=== PATIENT | female | born 1970 | race Caucasian/White ===

== ENCOUNTER 2023-02-23 15:38 | Emergency (ER) | payer MEDICAID, SELFPAY ==
[2023-02-23 15:39] VITALS: BP 118/69; PULSE 111; RESP 20; TEMP 36.6; O2SAT 98
--- NOTE | 2023-02-23 15:54 | ED.VIS.BACK ---
HPI History of Present Illness Chief Complaint: Back Informant: patient Onset/Context/Timing Onset: Weeks (1) Context: Gradual Onset Timing: Continuous Quality: Sharp Location: Lumbar, Buttock and Right Leg Current Severity: Severe Worsened by: improves with - (Everything) Relieved by: Nothing Associated Symptoms Associated Symptoms: Tingling and Radiation to Right Leg; Negative for Numbness, Radiation to Left Leg, Fever, Abdominal Pain, Dysuria, Unable to Ambulate, Unable to Transfer, Urinary Retention, Urinary Incontinence, Constipation or Fecal Incontinence Narrative Narrative: Presents with back pain that has been getting worse over the past week. Patient states it is gradually getting worse. Patient states she has a history of sciatica on her right side. Patient states this feels similar to prior exacerbations of her sciatica. Patient describes her pain as sharp. Patient states the pain is over the right lower lumbar area and radiates down her right leg. Patient states everything makes it worse and nothing makes it better. Patient admits to some tingling in the toes of her right foot. Patient denies any weakness. Patient denies any bowel or bladder changes. Patient denies any saddle anesthesia. [facility] Medical History (Updated 02/23/23 @ 16:[address] Pedro Tao, DO) Sciatica Home Medications cyclobenzaprine 10 mg tablet 10 mg PO QHS PRN PRN Muscle Spasm #10 TABLETS 02/23/23 [Rx Last Taken Unknown] hydrocodone-acetaminophen 5-325mg 5mg-325mg 1 tab PO Q6H PRN PRN Pain 3 days #10 TABLETS 02/23/23 [Rx Last Taken Unknown] prednisone 20 mg tablet 60 mg (3 x 20 mg) PO DAILY #15 TABLETS 02/23/23 [Rx Last Taken Unknown] Allergy/AdvReac Type Severity Reaction Status Date / Time No Known Allergies Allergy Verified 02/23/23 15:39 Surgical History no surgical history no surgical history ROS ROS ED Constitutional Constitutional ED: Denies chills or fever(s) Eyes Eyes: Denies blurry vision or change in vision ENT ENT ED: Denies rhinorrhea or sore throat Cardiovascular Cardiovascular: Denies chest pain or palpitations Respiratory/Chest Respiratory/Chest: Denies cough or dyspnea Gastrointestinal Gastrointestinal: Denies nausea or vomiting Genitourinary Genitourinary ED: Denies dysuria or hematuria Musculoskeletal Musculoskeletal: Reports back pain; Denies neck pain Integumentary Denies abscess or rash Neurologic Neurologic: Denies headache(s) or weakness Allergic/Immunologic Allergic/Immunologic ED: Denies mouth swelling or urticaria EXAM Physical Exam Const Vital Signs: 02/23/23 15:39 Temperature 98 F Temperature Source Temporal Pulse Rate 111 H Respiratory Rate 20 H Blood Pressure 118/69 Blood Pressure Mean 85 Pulse Ox 98 Oxygen Delivery Method Room Air Positive well nourished, well developed and obese General Appearance ED: well developed and NAD Nutritional Appearance: obese HEENT Reports moist mucous membranes Neck supple and no JVD Back/Spine Back/Spine Narrative: There is tenderness to palpation over the right lower lumbar paraspinal muscles, sciatic notch, and sacroiliac area. There is no bony crepitance or step-off. There is no ecchymosis noted. There is no deformity noted. Range of motion was slightly limited in all motions of the lumbar spine secondary to pain. Strength is 5/5 bilaterally in the lower extremities. There are no sensory deficits noted. Deep tendon reflexes are 1+/4 bilaterally in the lower extremities. Straight leg raises were negative bilaterally. Lumbar Spine / Lower Back: ROM limited and straight leg raise negative bilaterally Neuro oriented x3 and no sensory deficits noted Sensorium / Orientation: alert Motor Exam: strength 5/5 throughout Deep Tendon Reflexes: Rt Patellar (L4): 1+, Lt Patellar (L4): 1+, Rt Ankle (S1): 1+ and Lt Ankle (S1): 1+ Deep Tendon Reflexes Back: Rt Patellar (L4): 1+, Lt Patellar (L4): 1+, Rt Ankle (S1): 1+ and Lt Ankle (S1): 1+ Psych mental status grossly normal Skin no rashes or lesions noted MDM MDM MDM Narrative Medical decision making narrative: Was advised that this is most likely a flareup of her sciatica. Patient was given a dose of [place] and prednisone here. Patient was given prescriptions for [place], prednisone, and Flexeril. Patient was instructed to continue her Neurontin as prescribed. Patient was advised that that is not a as needed medication and that it needs to be taken regularly to be effective. Patient also requested a referral for orthopedics. This was provided to the patient. Patient was instructed to follow-up with her primary care physician in 5 to 7 days. Patient was instructed return if worse in any way. Patient understood and was agreeable with the plan. All questions were answered. Discharge Plan Triage Chief Complaint: Back ED Provider: Pedro Tao Dx/Rx/DC Orders Clinical Impression: Sciatica Instructions: ED Sciatica Prescriptions: New cyclobenzaprine [cyclobenzaprine] 10 mg tablet 10 mg PO QHS PRN PRN (Reason: Muscle Spasm) Qty: 10 0RF hydrocodone-acetaminophen [hydrocodone-acetaminophen] 5-325 mg tablet 1 tab PO Q6H PRN PRN (Reason: Pain) 3 Days Qty: 10 0RF prednisone 20 mg tablet 60 mg PO DAILY Qty: 15 0RF Primary Care Provider: Care Physician,No Primary Referrals: Cassie Raines MD [Med Staff - Psychologist Clinical] - 5-7 Days Jeff Duran DO [Med Staff - Active Staff] - 5-7 Days Care Physician,No Primary [Primary Care Provider] - Disposition Disposition: Home, Self Care
[2023-02-23] MEDS: HYDROcodone Bitartrate/Apap 5/325 Tablet PO (16:13)
[2023-02-23] MEDS: predniSONE 20 MG Tablet 60 MG PO (16:14)
== END 2023-02-23 16:18 | disposition home or self-care (01) ==
PROVIDERS: Emergency Provider Emergency Medicine; Visit Provider Emergency Medicine
DX: M54.30 Sciatica, unspecified side (principal)
CPT/HCPCS: 99283

== ENCOUNTER 2023-03-08 20:55 | Emergency (ER) | payer MEDICAID, SELFPAY ==
[2023-03-08 20:58] VITALS: BP 107/80; PULSE 94; RESP 20; TEMP 36.3; O2SAT 98
[2023-03-08 21:04] VITALS: BMI 36.1
--- NOTE | 2023-03-08 21:06 | ED.VIS.DENTA ---
HPI History of Present Illness Chief Complaint: Dental Informant: patient Narrative Narrative: Chronic dental issues worse in the past couple days trouble sleeping at night no fevers, chills, bleeding, discharge, systemic symptoms. States she has been trying to get into a dentist to get this taken care of but having issues. Denies any facial swelling. [facility] Medical History Neuroma Sciatica Home Medications gabapentin 300 mg capsule 300 mg PO 03/03/23 [History Last Taken Unknown] amoxicillin 500 mg tablet 500 mg PO TID #30 tabs 03/08/23 [Rx Last Taken Unknown] Allergy/AdvReac Type Severity Reaction Status Date / Time No Known Allergies Allergy Verified 03/08/23 20:58 Surgical History (Updated 03/03/23 @ 09:12 by Dayana Shields) History of carpal tunnel release Status post breast lumpectomy Social History household members: family Smoking Status: Current every day smoker tobacco type: cigarettes alcohol intake: never ROS ROS ED Constitutional Constitutional ED: Denies chills or fever(s) Eyes Eyes: Denies change in vision or double vision ENT ENT ED: Reports dental pain; Denies sinus pain or throat swelling Cardiovascular Cardiovascular: Denies chest pain or palpitations Respiratory/Chest Respiratory/Chest: Denies cough or dyspnea Integumentary Denies abscess or rash Neurologic Neurologic: Denies headache(s), paresthesias or weakness EXAM Physical Exam Const Vital Signs: 03/08/23 20:58 Temperature 97.4 F L Temperature Source Temporal Pulse Rate 94 Respiratory Rate 20 H Blood Pressure 107/80 Blood Pressure Mean 89 Pulse Ox 98 Oxygen Delivery Method Room Air Positive well nourished and well developed General Appearance ED: well developed and NAD HEENT HEENT Narrative: Tender decayed tooth #11. No bleeding, no associated gingival or facial/dental/palatal abscess. No trismus. Face and Sinus: sinuses nontender Throat: posterior oropharynx normal Eyes PERRL and EOMs intact bilaterally Neck no lymphadenopathy and supple Resp normal respiratory effort Neuro oriented x3 and CN's II-XII intact bilaterally Sensorium / Orientation: alert Gait (Neuro): normal gait Psych mental status grossly normal and thought process normal Skin no rashes or lesions noted and no wounds MDM MDM MDM Narrative Medical decision making narrative: Reviewed OARRS report patient had a recent narcotic prescription from here this month for back pain. I am apprehensive about giving her another prescription for narcotics which I discussed with her, she is in agreement and really just wants antibiotics and something for pain tonight which I am okay with. Discharge Plan Triage Chief Complaint: Dental ED Provider: Kristopher Arnold Dx/Rx/DC Orders Clinical Impression: Infected dental caries Instructions: ED Dental Cavity Prescriptions: New amoxicillin 500 mg tablet 500 mg PO TID Qty: 30 0RF No Action gabapentin 300 mg capsule 300 mg PO Primary Care Provider: Care Physician,No Primary Referrals: Care Physician,No Primary [Primary Care Provider] - Dentist,Your [STAFF PHYSICIAN] - As soon as possible Disposition Disposition: Home, Self Care
[2023-03-08] MEDS: AMOXICILLIN 500 MG CAPSULE PO (21:09)
[2023-03-08] MEDS: oxyCODONE 5 MG Tablet PO (21:09)
== END 2023-03-08 21:15 | disposition home or self-care (01) ==
LOC: ED 21:13
PROVIDERS: Emergency Provider Emergency Medicine; Visit Provider Emergency Medicine
DX: K02.9 Dental caries, unspecified (principal); F17.210 Nicotine dependence, cigarettes, uncomplicated
CPT/HCPCS: 99283

== ENCOUNTER 2023-03-24 13:14 | Outpatient (RCR) | payer MEDICAID, SELFPAY ==
--- NOTE | 2023-03-24 13:57 | HP.PTEVAL_ITS ---
Patient's Visit Information Visit Information Visit Information: THAD RAMÍREZ is a 52 year old F referred to Physical Therapy by Dr. Jeff Duran, DO with a diagnosis of SCIATICA ,OTHER INTERVERTEBRAL DISC DEGENERATION ,LUMBAR. Date of Evaluation: 03/24/23 Physical Therapist: Devon Isaac, PT, Cert MDT, OCS Visit Plan Frequency: 2x /Week Duration: 4 Weeks Plan: PT [facility] WITH LUMBAR ROM ,DLS ,POSTURAL EX'S , ROM AND STRENGTHENING BLE Subjective Subjective: This 52 y/o female is referred to physical therapy with lumbar radiculopathy. Patient has had back pain many years. Most recently symptoms progressively worse . Patient seen DR Duran but needed PT and will need MRI. Patient had x-rays showed DDD. Patient also patient has bilateral knee pain and right hip with DJD and plan to see orthro. Patient has pain management 15 years ago. Patient pain located right lumbar with radicular symptoms in leg. Aggravating factors walking less ~ 2-3 mins, standing ~ 1min before sitting . Alleviating factors rest ,sitting . Patient has paresthesia/tingling feet . No abnormal night pain. Patient may need pain management. Coughing/sneezing -. Patient sleeping is affected by pain. Patient tried PT in past. No abnormal night pain. Patient affects QOL and function. Patient goals to decrease pain and possible MRI SOCIAL: VOCATION: disability Pain Bilateral Back: Pain Intensity (Out of 10): 8 Pain Intensity Range: 10 Bilateral Knee: Pain Intensity (Out of 10): 7 Pain Intensity Range: 10 Right Hip: Pain Intensity (Out of 10): 9 Pain Intensity Range: 10 Objective Objective: POSTURE: mild/mod forward posture trunk ,hip/knees flexed NEURO: c/o paresthesia/tingling reflexes L3-4,L4-5,L5-S1 1/3 PALPATION: tender SI/LS FLEXABLITY: hamstrings min tight HIP PROM: IR 10 degrees right KNEE AROM: 5-120 supine knee flexion MMT: quads/hams 4/5 , hip flexion .abduction 4-/5 ,ankle 5/5 LUMBAR ROM: flexion WFL ,extension severe/mod loss pain ,side glides loss Special Tests L/S Slump test left side: Negative L/S Slump test right side: Negative L/S Left Straight Leg Raise: Negative L/S Right Straight Leg Raise: Negative Lumbar Standing: Flexion - Mechanical Response: No effect Lumbar Standing: Flexion - Symptoms During Testing: No effect Lumbar Standing: Flexion - Symptoms After Testing: No effect Lumbar Standing: Extension - Mechanical Response: No effect Lumbar Standing: Extension - Symptoms During Testing: Increases Lumbar Standing: Extension - Symptoms After Testing: Worse Lumbar Standing: Right Side Glides - Mechanical Response: No effect Lumbar Standing: Right Side [place] - Symptoms During Testing: No effect Lumbar Standing: Right Side [place] - Symptoms After Testing: No effect Lumbar Standing: Left Side [place] - Mechanical Response: No effect Lumbar Standing: Left Side [place] - Symptoms During Testing: No effect Lumbar Standing: Left Side [place] - Symptoms After Testing: No effect Balance/Special Test Scores Oswestry Low Back Score: 31 Goals Goal 1:: Patient to be I with Aquatic therapy program and HEP Goal Time Frame: 4-6 Weeks Goal 2:: Patient be able to walking and stand > 5 mins to improve ADLS and housework tasks. Goal Time Frame: 4-6 Weeks Goal 3:: Patient to improve lumbar ROM for function of recovery to tie shoes and housework tasks Goal Time Frame: 4-6 Weeks Goal 4:: Patient to improve back oswestry score by 5 points to improve QOL Goal Time Frame: 4-6 Weeks Goal 5:: Patient to demonstrate 40-50% improvement with decrease pain and improved function. Goal Time Frame: 4-6 Weeks Rehabilitation Potential Physical Therapy Diagnosis: This patient has lumbar maculopathy with possible stenosis with pain worse with walking and standing better with sitting and is affected with motion testing and positioning thus benefit from skilled PT Rehabilitation Potential: Fair Anticipated Interventions Patient/Client Instruction: Educate patient on: Condition and Plan of Care For the Purpose of:: To decrease pain, To increase ROM, To improve muscle performance and motor function, To improve ability to perform ADL's, To increase tolerance to activity/condition/position, To improve ability of physical actions for home/community/work/leisure, To improve health of tissue, To decrease soft tissue restriction, To increase flexibility/ROM, To improve endurance, To improve balance, To reduce risk of recurrence, To prevent re-injury and To improve tolerance to ADL's Therapeutic Exercise to Include: Strength training, Endurance training, Body mechanics, Postural training, Flexibilty training, In an aquatic setting and Dynamic Lumbar Stabilization For the Purpose of:: To decrease pain, To increase ROM, To improve muscle performance and motor function, To improve ability to perform ADL's, To increase tolerance to activity/condition/position, To improve performance and independence with ADL's, To improve ability of physical actions for home/community/work/leisure, To improve gait and locomotor functions, To decrease soft tissue restriction, To increase flexibility/ROM, To prevent re- injury and To improve tolerance to ADL's Text: Thank you for the opportunity to evaluate your patient. For Medicare and Medicare HMO plans, please review the plan of care and approve it. It will need to be FAXED BACK to us at [phone] for Medicare purposes. For Medicare only, by signing this I certify the plan of care. Please let me know if there are questions or concerns regarding this plan of care. Physician Signature: Date:
== END 2023-03-24 19:00 | disposition home or self-care (01) ==
LOC: PT 13:14
PROVIDERS: Referring Provider Orthopaedic Surgery; Visit Provider Orthopaedic Surgery
DX: M54.30 Sciatica, unspecified side (principal); M51.36 Other intervertebral disc degeneration, lumbar region
CPT/HCPCS: 97162

== ENCOUNTER → 2023-05-09 | Outpatient (CLI) | payer MEDICAID, SELFPAY ==
--- NOTE | 2023-05-09 09:28 | MRI_ITS ---
EXAM: MR LUMBAR SPINE WITHOUT INTRAVENOUS CONTRAST CLINICAL INDICATION: PAIN TECHNIQUE: Multiplanar and multisequence MR images of the lumbar spine without intravenous contrast. COMPARISON: No relevant prior studies available. FINDINGS: VERTEBRAE: Partial lumbarization of L5. Vertebral body heights are preserved. Normal vertebral bodies. Multilevel facet arthropathy. No spondylolisthesis. There is preservation of the normal lumbar lordosis. SPINAL CORD: Normal. Normal position and signal intensity of the conus medullaris. SOFT TISSUES: Normal. DISCS/SPINAL CANAL/NEURAL FORAMINA: L1-L2: Normal. Normal disc height and morphology. Normal spinal canal and lateral recesses. Normal neuroforamina. L2-L3: Decreased T2 signal intensity of the disc indicative of desiccation. No significant disc space narrowing. Mild disc bulging, ligamentous hypertrophy and facet arthropathy results in mild to moderate spinal stenosis and mild right and moderate left neural foraminal stenosis. Element of short pedicles also contributes to the narrowing of the spinal canal. L3-L4: Normal. Normal disc height and morphology. Mild disc bulging, ligamentous hypertrophy and facet arthropathy as well as short pedicles results in moderate spinal stenosis and mild narrowing of the neural foramina related to facet arthropathy. L4-L5: Moderate disc space narrowing. No disc herniation. Normal spinal canal. Mild to moderate narrowing of the neural foramina related to facet arthropathy and mild lateral disc bulging. L5-S1: Mild anterior disc space narrowing no disc herniation. Normal caliber spinal canal. Mild narrowing of the right neural foramen related to facet arthropathy and mild vertebral body osteophytosis. MRI/Spine Lumbar (Routine) IMPRESSION: Moderate spinal stenosis at L2-3 and L3-4 related to short pedicles, mild disc bulging, facet arthropathy and ligamentous hypertrophy. Electronically Signed: Mo Fallon MD at 8:30 EDT ,
== END | disposition home or self-care (01) ==
LOC: MRI 09:26
PROVIDERS: Referring Provider Orthopaedic Surgery; Visit Provider Orthopaedic Surgery
DX: M51.36 Other intervertebral disc degeneration, lumbar region (principal)
CPT/HCPCS: 72148

== ENCOUNTER 2023-05-22 11:37 | Emergency (ER) | payer MEDICAID, SELFPAY ==
[2023-05-22 11:38] VITALS: BP 121/76; PULSE 108; RESP 18; TEMP 35.9; O2SAT 98
--- NOTE | 2023-05-22 14:02 | EX.ED.DYSGE1 ---
HPI History of Present Illness Chief Complaint: Back Informant: patient Narrative Narrative: 53-year-old female presenting to the emergency department chief complaint of sciatica and shoulder pain. Patient has chronic pain and was in pain management prior to moving to the [facility]. She states that she has had sciatica in the past and has had ablation. For the past 2 weeks she has had pain in the right buttock radiating down her right leg. Has progressively worsened and now she states she cannot stand for any length of time. She also notes bilateral knee pain which she states she is supposed to have bilateral knee replacements but needs to lose weight first. She also notes arthritic changes in the shoulders and states that the right shoulder is more painful recently. She denies any known or direct trauma. No bowel or bladder dysfunction, no fevers, no immunosuppression or diabetes, no muscle strength or sensory changes. She does note electric-like shocks traveling down the right leg into her foot she denies any rashes. Denies any IV drug use. Currently she states that this flare has been going on for 2 weeks but got more severe last night. I did review Dr. Brennan's and Roger's previous office visits notes. She did have an MRI at the end of April. Patient states that she has been taking ibuprofen for pain. She noted with Dr. Duran that she cannot take ibuprofen because of stomach ulcers but have been taking Aleve. I did review her OARRS report. [facility] Medical History Neuroma Sciatica Home Medications celecoxib 200 mg capsule (Celebrex) 200 mg PO DAILY #30 caps 03/11/23 [Rx Last Taken Unknown] Allergy/AdvReac Type Severity Reaction Status Date / Time No Known Allergies Allergy Verified 05/22/23 11:40 Surgical History History of carpal tunnel release Status post breast lumpectomy Social History household members: family Smoking Status: Current every day smoker tobacco type: cigarettes alcohol intake: never ROS ROS ED Constitutional Constitutional ED: Denies chills, fever(s) or weight loss Eyes Eyes: Denies change in vision or diplopia ENT ENT ED: Denies ear pain, rhinorrhea or sore throat Cardiovascular Cardiovascular: Denies chest pain, orthopnea, palpitations or racing heartbeat Respiratory/Chest Respiratory/Chest: Denies cough, dyspnea or orthopnea Gastrointestinal Gastrointestinal: Denies abdominal pain, diarrhea, nausea or vomiting Genitourinary Genitourinary ED: Denies dysuria, hematuria or urinary frequency Musculoskeletal Musculoskeletal: Reports arthralgias and back pain; Denies myalgias or neck pain Integumentary Denies abscess or rash Neurologic Neurologic: Reports paresthesias; Denies headache(s) or weakness Psychiatric Psychiatric: Denies anxiety, depression, suicidal ideation or suicidal thoughts Endocrine Endocrinology: Denies polydipsia, polyphagia or polyuria Allergic/Immunologic Allergic/Immunologic ED: Denies mouth swelling, tongue swelling or urticaria EXAM Physical Exam Narrative Exam Narrative: Patient is laying on her stomach. He is in a darkened room resting. No acute distress. She is able to get herself on her back. She is able to cross her right leg over her left leg while laying down sitting that does seem to make it feel better. Const Vital Signs: 05/22/23 11:38 05/22/23 12:18 Temperature 96.7 F L Temperature Source Temporal Pulse Rate 108 H Respiratory Rate 18 Respiratory Effort Normal Non-Labored Respiratory Pattern Normal Blood Pressure 121/76 H Blood Pressure Mean 91 Pulse Ox 98 Oxygen Delivery Method Room Air Positive well nourished, well developed and obese General Appearance ED: well developed Nutritional Appearance: obese HEENT Reports normocephalic, head/scalp atraumatic and moist mucous membranes Eyes PERRL and EOMs intact bilaterally Neck no lymphadenopathy, supple and no JVD Resp normal respiratory effort and clear to auscultation bilaterally Cardio regular rate, regular rhythm and no murmurs GI normal to inspection, nondistended, normoactive bowel sounds and non-tender Palpation: soft Back/Spine no CVA tenderness Back/Spine Narrative: Right sciatic notch tenderness. Motor and sensory exam of the lower extremities appears normal. Extremity normal to inspection Extremity Narrative: No obvious joint effusion. No overlying erythema or increased warmth to the joints. General Extremety ED: Negative for edema General Extremity: Negative for edema Neuro oriented x3 and CN's II-XII intact bilaterally Sensorium / Orientation: alert Motor Exam: strength 5/5 throughout Psych mental status grossly normal Mood & Affect: Negative for depressed or tearful Skin no rashes or lesions noted and no wounds MDM MDM MDM Narrative Medical decision making narrative: This appears to be acute exacerbation of her chronic illnesses. I can write for a short burst of steroids. I will also write for some anti-inflammatory medication. I did review her OARRS report. She has not had any recent narcotics I can write for a few [place]. Would recommend that she follow-up with her doctors especially for exacerbations of chronic illnesses. At this time I do not see any acute need for hospitalization surgical intervention. Discharge Plan Triage Chief Complaint: Back Other Complaint: General Illness ED Provider: Dhaval Martin Dx/Rx/DC Orders Clinical Impression: Sciatica, Acute pain of right shoulder Instructions: ED Sciatica Prescriptions: No Action celecoxib [Celebrex] 200 mg capsule 200 mg PO DAILY Qty: 30 0RF Primary Care Provider: Care Physician,No Primary Referrals: Care Physician,No Primary [Primary Care Provider] - Disposition Disposition: Home, Self Care
[2023-05-22] MEDS: Ketorolac 60 MG/2 ML Vial IM (14:21)
[2023-05-22] MEDS: oxyCODONE 5 MG Tablet 10 MG PO (14:21)
== END 2023-05-22 14:26 | disposition home or self-care (01) ==
PROVIDERS: Emergency Provider Emergency Medicine; Visit Provider Emergency Medicine
DX: M54.32 Sciatica, left side (principal); M25.511 Pain in right shoulder; F17.210 Nicotine dependence, cigarettes, uncomplicated
CPT/HCPCS: 96372; 99283

== ENCOUNTER 2023-09-09 19:16 | Emergency (ER) | payer MEDICAID, SELFPAY ==
[2023-09-09 19:18] VITALS: BP 125/74; PULSE 100; RESP 16; TEMP 36.3; O2SAT 98; BMI 41.9
--- NOTE | 2023-09-09 21:47 | EX.ED.DYSGE1 ---
HPI History of Present Illness Chief Complaint: Other, Pain/Inj Detail of Chief Complaint: Right-sided neck pain Informant: patient Onset/Context/Timing Onset: Weeks Context: Gradual Onset Timing: Waxes and wanes Narrative Narrative: Patient presents secondary to right-sided neck pain. She woke about a week ago with right-sided neck pain and thought she just slept wrong. She continues to have spasm. She is been taking ibuprofen regularly without improvement. Patient states she did fall on the ice yesterday onto her buttocks but did not injure her neck without fall. No fever or chills. No headache. [facility] Medical History Neuroma Sciatica Home Medications celecoxib 200 mg capsule (Celebrex) 200 mg PO DAILY #30 caps 03/11/23 [Rx Last Taken Unknown] ibuprofen 600 mg tablet 600 mg PO Q6H #20 TABLETS 05/22/23 [Rx Last Taken Unknown] omeprazole 20 mg capsule,delayed release 20 mg PO BID #10 CAPSULES 05/22/23 [Rx Last Taken Unknown] oxycodone-acetaminophen 5 mg-325 mg tablet 1 tab PO Q6H PRN PRN Pain 3 days #12 TABLETS 05/22/23 [Rx Last Taken Unknown] prednisone 20 mg tablet 60 mg (3 x 20 mg) PO DAILY #15 TABLETS 05/22/23 [Rx Last Taken Unknown] cyclobenzaprine 10 mg tablet 10 mg PO TID PRN Muscle Spasm #20 TABLETS 09/09/23 [Rx Last Taken Unknown] prednisone 20 mg tablet 40 mg (2 x 20 mg) PO DAILY #10 tabs 09/09/23 [Rx Last Taken Unknown] Allergy/AdvReac Type Severity Reaction Status Date / Time No Known Allergies Allergy Verified 09/09/23 19:20 Surgical History History of carpal tunnel release Status post breast lumpectomy Social History household members: family Smoking Status: Current every day smoker tobacco type: cigarettes alcohol intake: never ROS ROS ED Constitutional Constitutional ED: Denies chills or fever(s) ENT ENT ED: Denies rhinorrhea or sore throat Cardiovascular Cardiovascular: Denies chest pain Respiratory/Chest Respiratory/Chest: Denies cough or dyspnea Gastrointestinal Gastrointestinal: Denies abdominal pain, nausea or vomiting Musculoskeletal Musculoskeletal: Reports neck pain; Denies back pain or extremity pain Integumentary Denies Abrasions or rash Neurologic Neurologic: Denies headache(s), paresthesias or weakness Allergic/Immunologic Allergic/Immunologic ED: Denies lip swelling or urticaria EXAM Physical Exam Const Vital Signs: 09/09/23 19:18 09/09/23 21:36 Temperature 97.3 F L Temperature Source Temporal Pulse Rate 100 Respiratory Rate 16 Respiratory Effort Normal Respiratory Pattern Normal Blood Pressure 125/74 H Blood Pressure Mean 91 Pulse Ox 98 Oxygen Delivery Method Room Air Positive well nourished and well developed General Appearance ED: well developed HEENT Reports moist mucous membranes Eyes EOMs intact bilaterally Neck Neck Narrative: No midline cervical tenderness. Tenderness in the right cervical paraspinal muscles and in the right trapezius muscle. Chest Wall inspection of chest normal and palpation of chest normal Resp normal respiratory effort and clear to auscultation bilaterally Cardio regular rate and regular rhythm GI non-tender Palpation: soft Extremity normal to inspection Neuro oriented x3 and no sensory deficits noted Motor Exam: strength 5/5 throughout Psych mental status grossly normal Skin no rashes or lesions noted MDM MDM MDM Narrative Medical decision making narrative: Patient has reproducible muscular tenderness. She will continue her ibuprofen and we will treat her with prednisone as well as muscle relaxer. With no trauma to the area I do not believe imaging is necessary. Discharge Plan Triage Chief Complaint: Other, Pain/Inj ED Provider: Carole Joshi Dx/Rx/DC Orders Clinical Impression: Muscle spasms of neck Instructions: ED Neck Spasm, No Trauma Prescriptions: New prednisone 20 mg tablet 40 mg PO DAILY Qty: 10 0RF cyclobenzaprine 10 mg tablet 10 mg PO TID PRN (Reason: Muscle Spasm) Qty: 20 0RF No Action celecoxib [Celebrex] 200 mg capsule 200 mg PO DAILY Qty: 30 0RF oxycodone-acetaminophen [oxycodone-acetaminophen] 5-325 mg tablet 1 tab PO Q6H PRN PRN (Reason: Pain) 3 Days Qty: 12 0RF prednisone 20 mg tablet 60 mg PO DAILY Qty: 15 0RF ibuprofen 600 mg tablet 600 mg PO Q6H Qty: 20 0RF omeprazole [omeprazole] 20 mg capsule,delayed release(/EC) 20 mg PO BID Qty: 10 0RF Primary Care Provider: Care Physician,No Primary Referrals: Dayana Hood MD [Med Staff - Market Consultant] - As Needed Care Physician,No Primary [Primary Care Provider] - Disposition Disposition: Home, Self Care Discharge Date/Time: 09/09/23 22:14
== END 2023-09-09 22:14 | disposition home or self-care (01) ==
LOC: ED 21:51
PROVIDERS: Emergency Provider Emergency Medicine; Visit Provider Emergency Medicine
DX: M62.838 Other muscle spasm (principal); F17.210 Nicotine dependence, cigarettes, uncomplicated; W00.9XXA Unspecified fall due to ice and snow, initial encounter
CPT/HCPCS: 99282

== ENCOUNTER → 2023-10-01 | Outpatient (CLI) | payer MEDICAID, SELFPAY ==
--- NOTE | 2023-10-01 17:45 | RAD_ITS ---
INDICATION: PAIN EXAMINATION/TECHNIQUE: X-RAY - XR Spine Cervical 4 or 5 Views COMPARISON: None. FINDINGS: The vertebral bodies are normal in height. No definite fracture demonstrated. No subluxation. There is straightening of the normal curvature. Mild disc space narrowing with osteophytes C5-C7. Mild facet arthropathy at the lower levels. Prevertebral soft tissues are unremarkable. RAD/Cerv Spine 2 or 3 Views IMPRESSION: No evidence of fracture or subluxation. Straightening of the normal curve may be due to positioning or muscle spasm. Degenerative discogenic disease and facet arthropathy. Electronically Signed: Zamzam Babcock MD at 8:08 EST ,
== END | disposition home or self-care (01) ==
LOC: RAD 17:36
PROVIDERS: Visit Provider Anesthesiology Pain Medicine
DX: M54.2 Cervicalgia (principal)
CPT/HCPCS: 72040

== ENCOUNTER 2023-10-19 14:19 | Emergency (ER) | payer MEDICAID, SELFPAY ==
[2023-10-19 14:20] VITALS: BP 126/95; PULSE 115; RESP 24; TEMP 35.1; O2SAT 91; BMI 42.0
[2023-10-19] MEDS: Ketorolac 30 MG/ML Syringe IM (17:26)
[2023-10-19] MEDS: Gabapentin 300 MG Capsule PO (17:26)
[2023-10-19] MEDS: Morphine 4 MG/ML Syringe IM (17:27)
--- NOTE | 2023-10-19 17:36 | EDS_ITS ---
HPI History of Present Illness Chief Complaint: Back Informant: patient Narrative Narrative: Worsening nontraumatic right neck pain rating trapezius and under her armpit. States numb behind the upper arm. There is no weakness. Going on for 6 weeks. She awakened with symptoms. [address] Gongora, pain management, started on a Medrol Dosepak NSAIDs and muscle relaxers. She followed this past due to acromioclavicular pain had injections there that is improving. However states she needs to go through physical therapy and pending MRI for further treatment. There is been no new injuries. She has history of chronic back pain with pending injections for back with Dr. Gongora. She is followed by spine surgeon Dr. Duran. There has been no surgical interventions. She took 6 and ibuprofen at 7 AM 10 hours ago. She states she has been on neuropathic medicines for her back in the past however currently is not on it. She is unclear if it really helped. She states pain is worse and keeping her up throughout the week. From nursing triage states hurt so much that she cannot go to court. She states she has no court dates, stating that with the pain and discomfort she would not make it to any important appointment. [facility] Medical History Neuroma Sciatica Home Medications celecoxib 200 mg capsule (Celebrex) 200 mg PO DAILY #30 caps 03/11/23 [Rx Last Taken Unknown] ibuprofen 600 mg tablet 600 mg PO Q6H #20 TABLETS 05/22/23 [Rx Last Taken Unknown] omeprazole 20 mg capsule,delayed release 20 mg PO BID #10 CAPSULES 05/22/23 [Rx Last Taken Unknown] oxycodone-acetaminophen 5 mg-325 mg tablet 1 tab PO Q6H PRN PRN Pain 3 days #12 TABLETS 05/22/23 [Rx Last Taken Unknown] prednisone 20 mg tablet 60 mg (3 x 20 mg) PO DAILY #15 TABLETS 05/22/23 [Rx Last Taken Unknown] cyclobenzaprine 10 mg tablet 10 mg PO TID PRN Muscle Spasm #20 TABLETS 09/09/23 [Rx Last Taken Unknown] prednisone 20 mg tablet 40 mg (2 x 20 mg) PO DAILY #10 tabs 09/09/23 [Rx Last Taken Unknown] gabapentin 300 mg capsule 300 mg PO QHS #30 caps 10/19/23 [Rx Last Taken Unknown] Allergy/AdvReac Type Severity Reaction Status Date / Time No Known Allergies Allergy Verified 09/09/23 19:20 Surgical History History of carpal tunnel release Status post breast lumpectomy Social History household members: family Smoking Status: Current every day smoker tobacco type: cigarettes alcohol intake: never ROS ROS ED Constitutional Constitutional ED: Denies chills, fever(s) or sweats Eyes Eyes: Denies change in vision ENT ENT ED: Denies dysphagia or sore throat Cardiovascular Cardiovascular: Denies chest pain, leg edema, palpitations or racing heartbeat Respiratory/Chest Respiratory/Chest: Denies cough, dyspnea or dyspnea on exertion Gastrointestinal Gastrointestinal: Denies abdominal pain, diarrhea, nausea or vomiting Genitourinary Genitourinary ED: Denies dysuria, hematuria or urinary frequency Musculoskeletal Musculoskeletal: Reports back pain and neck pain; Denies extremity pain Integumentary Denies rash or wounds Neurologic Neurologic: Denies headache(s), paresthesias or weakness EXAM Physical Exam Const Vital Signs: 10/19/23 14:20 Temperature 95.2 F L Temperature Source Temporal Pulse Rate 115 H Respiratory Rate 24 H Blood Pressure 126/95 H Blood Pressure Mean 105 Pulse Ox 91 Oxygen Delivery Method Room Air Positive well nourished and well developed General Appearance ED: well developed and NAD HEENT Reports moist mucous membranes normocephalic and atraumatic Eyes PERRL, EOMs intact bilaterally and conjunctivae normal General Eye ED: Yes normal appearance of both eyes Neck no lymphadenopathy and supple Neck Narrative: Paracervical tenderness on the right right trapezial tenderness. No midline spine tenderness. Spurling's test negative. General: tenderness Chest Wall Chest: Negative for tenderness Resp normal respiratory effort and normal air movement Effort and Inspection: symmetric chest movement; Negative for respiratory distress Cardio regular rate, regular rhythm and no murmurs Peripheral Pulses: pulses 2+ throughout GI normal to inspection, nondistended, normoactive bowel sounds and non-tender Palpation: Negative for guarding or rebound tenderness present Back/Spine no CVA tenderness Extremity normal to inspection General Extremety ED: Negative for edema or tenderness General Extremity: Negative for edema Neuro oriented x3 and no sensory deficits noted Sensorium / Orientation: awake and alert Skin no rashes or lesions noted and no wounds MDM MDM MDM Narrative Medical decision making narrative: Interventions / MDM: Differential diagnosis: Cervical radiculopathy Diagnosis considered but do not suspect: No central cord signs My EKG interpretation: N/A Imaging independently reviewed and interpreted by myself: N/A External documents reviewed: N/A Test considered but not ordered:N/A ED course: Patient chronic back pain with injections, now. Main complaint cervical pain appears to be radiculopathy trapezius to the armpit region. There is no weakness. She had a ride here. She is followed by pain management. She understands no narcotic prescriptions from the ER. Last dose of NSAIDs 10 hours ago she has tolerated Toradol in the past was ordered along with morphine. She started on gabapentin along with a prescription of this. She has a follow-up with her spine surgeon to follow-up on an MRI of her lumbar this which she will keep. She has PT scheduled. She is followed by pain management for the treatment as an outpatient. All questions were answered. Re-evaluation: stable Disposition discussed with patient/family/significant other: Patient Case discussed with consulting clinician: N/A This note was generated with [employer] dictation software. It may contain incorrect words, spelling, and punctuation that were not noted in checking the note before signing. Discharge Plan Triage Chief Complaint: Back ED Provider: Hemant Carmona Dx/Rx/DC Orders Clinical Impression: Cervical radiculitis Instructions: ED Radiculopathy, Cervical Prescriptions: New gabapentin 300 mg capsule 300 mg PO QHS Qty: 30 0RF No Action celecoxib [Celebrex] 200 mg capsule 200 mg PO DAILY Qty: 30 0RF oxycodone-acetaminophen [oxycodone-acetaminophen] 5-325 mg tablet 1 tab PO Q6H PRN PRN (Reason: Pain) 3 Days Qty: 12 0RF prednisone 20 mg tablet 60 mg PO DAILY Qty: 15 0RF ibuprofen 600 mg tablet 600 mg PO Q6H Qty: 20 0RF omeprazole [omeprazole] 20 mg capsule,delayed release(DR/EC) 20 mg PO BID Qty: 10 0RF prednisone 20 mg tablet 40 mg PO DAILY Qty: 10 0RF cyclobenzaprine 10 mg tablet 10 mg PO TID PRN (Reason: Muscle Spasm) Qty: 20 0RF Primary Care Provider: Care Physician,No Primary Referrals: Ilya Gongora MD [Med Staff - Active Staff] - 1 Week Jeff Duran DO [Med Staff - Active Staff] - Keep Otny appointment Care Physician,No Primary [Primary Care Provider] - Activity Restrictions/Additional Instructions: Continue your ibuprofen 600 mg. Take gabapentin as prescribed. Follow-up with your specialist outpatient evaluation. Continue plan physical therapy. Disposition Disposition: Home, Self Care
[2023-10-19 17:46] VITALS: BP 129/91; PULSE 91; RESP 16; TEMP 36.6; O2SAT 99
== END 2023-10-19 17:52 | disposition home or self-care (01) ==
LOC: ED 17:29
PROVIDERS: Emergency Provider Emergency Medicine; Visit Provider Emergency Medicine
DX: M54.12 Radiculopathy, cervical region (principal); F17.210 Nicotine dependence, cigarettes, uncomplicated
CPT/HCPCS: 96372; 99282

== ENCOUNTER 2024-01-17 20:02 | Emergency (ER) | payer MEDICAID, SELFPAY ==
[2024-01-17 20:03] VITALS: BP 93/73; PULSE 109; RESP 18; TEMP 36.4; O2SAT 100
--- NOTE | 2024-01-17 20:33 | EDS_ITS ---
<Statement entered by Carole Joshi MD - 01/17/24 22:35> I have personally performed a face to face assessment of the patient and have reviewed the KARL Note. Patient presents secondary to right groin abscess. She has noted a painful area in the right groin over the past 5 days. Over the past 2 or 3 days it has gotten worse. He does open and drain a large amount of fluid but keeps reaccumulating. Patient lying in bed no acute distress. Nontoxic-appearing. Head neck examination unremarkable. Heart is regular rate and rhythm. Skin examination reveals a fluctuant abscess along the right groin line. No overlying cellulitis at this time. There are significant areas of firmness likely representing enlarged lymph nodes. Bedside ultrasound of the area is performed myself. There is a focal area of fluid collection along with some enlarged lymph nodes. Nursing Techn is then able to perform an I&D over the area of identified fluid collection. Please see his procedure note for details. Patient discharged with Bactrim and Keflex and return instructions were provided. HPI History of Present Illness Chief Complaint: Abscess Narrative Narrative: Patient is a 53-year-old female with no significant medical history, arthritis who presents to the emergency department for concern for an abscess to the right groin. Patient states she has noticed this getting worse over the last 5 days over the last 2 to 3 days beginning much bigger and is draining. Patient states that when it drained it does feel better however continues to fill out. She denies any fever chills nausea or vomiting. [facility] Medical History Neuroma Sciatica Home Medications ?Medication ?Instructions ?Recorded ?Last Taken ?Type ibuprofen 600 mg tablet 600 mg PO Q6H #20 TABLETS 05/22/23 Unknown Rx gabapentin 300 mg capsule 300 mg PO QHS #30 caps 10/19/23 Unknown Rx omeprazole 20 mg capsule,delayed 20 mg PO BID PRN 10/22/23 Unknown History release celecoxib 100 mg capsule (Celebrex) 100 mg PO BID #60 caps 12/25/23 Unknown Rx cephalexin 500 mg capsule 500 mg PO Q6 #40 CAPSULES 01/17/24 Unknown Rx sulfamethoxazole 800 1 tab PO BID 10 days #20 tabs 01/17/24 Unknown Rx mg-trimethoprim 160 mg tablet (Bactrim DS) Allergy/AdvReac Type Severity Reaction Status Date / Time No Known Allergies Allergy Verified 01/17/24 20:03 Surgical History History of carpal tunnel release Status post breast lumpectomy Social History household members: family Smoking Status: Current some day smoker tobacco type: cigarettes alcohol intake: never ROS ROS ED ROS Narrative Constitutional: Negative for fever, chills, weight loss, weakness Eyes: Negative for vision loss, vision change, double vision ENT: Negative for any sore throat, ear pain, congestion Cardiovascular: Negative for any chest pain, tightness, palpitations Respiratory: Negative for any cough, sputum production, hemoptysis, dyspnea, dyspnea on exertion, orthopnea Gastrointestinal: Negative for any abdominal pain, nausea, vomiting, diarrhea, constipation, blood in stool, blood in vomit : Negative for any urinary frequency, dysuria, retention, blood in urine Muscle skeletal: Negative for any neck pain, back pain Neurological: Negative for any headache, syncope, dizziness Skin: Negative for any rashes, itching, abrasions, lacerations. Positive for abscess to the right groin Psychiatric: Negative for any depression, anxiety, stress, suicidal ideation, homicidal ideation Hematologic: Negative for any excessive bruising, easy bleeding EXAM Physical Exam Narrative Exam Narrative: Vital signs reviewed. HEET: Head normocephalic atraumatic, TMs clear bilaterally. Posterior pharynx is clear, moist mucous membranes. Nares clear bilaterally. Neck: Supple with no lymphadenopathy or tenderness. No signs of meningismus. Cardiac: Regular rate and rhythm no murmurs gallops or rubs, equal peripheral pulses bilaterally. Respiratory: Lungs clear to auscultation bilaterally. No chest tenderness. Abdomen: Soft, nontender, nondistended. No abdominal bruit or pulsatile masses. No hepatosplenomegaly Extremities: No peripheral edema, no signs of gross trauma or deformity. Active full range of motion of all extremities. Neuro: Cranial nerves II through XII intact, no focal neurological deficits. Skin: Clean dry and intact with no rash, purpura, petechiae, vesicles or pustules. Patient to the right groin has an abscess, this is not a vaginal abscess. Patient does have some lymphadenopathy both inferior and superior to the erythematous area. Patient does have an area of opening that it did drain from. Backs/flank: No CVA tenderness, no midline spinal tenderness, no deformity. Psych: Normal mood and affect. No SI, HI or acute psychosis. Const Vital Signs: 01/17/24 20:03 Temperature 97.6 F L Temperature Source Temporal Pulse Rate 109 H Respiratory Rate 18 Blood Pressure 93/73 Blood Pressure Mean 79 Pulse Ox 100 Oxygen Delivery Method Room Air [facility] Treatment and Re-Evaluation :: Differential diagnosis includes however is not limited to: Abscess, foreign body, lymphadenopathy Patient appears to be in no obvious respiratory distress vital signs are stable, patient appears nontoxic. Presenting to the emergency department with complaints of abscess to the right groin. The ER attending and I used the ultrasound, we were able to find an area of fluctuation and a fluid-filled abscess. There were areas of lymphadenopathy. I did have Jenn RN with me the entire time. I was able to anesthetize the area. Cleanse the area with Hibiclens. I was able to make a 1 cm horizontal incision, copious amounts of yellow to white liquid was expelled. I was able to use forceps to break up loculations and again got copious amounts of yellow to white discharge. I was able to pack the wound. Patient be placed on Bactrim and Keflex for 10 days. She will follow-up outpatient. She will take the packing out in 24 to 48 hours. She is happy with the plan of care, all questions answered, stable for discharge. Instructed return for any worsening symptoms. Discharge Plan Triage Chief Complaint: Abscess ED Midlevel Provider: Van Billingsley ED Provider: Carole Joshi Dx/Rx/DC Orders Clinical Impression: Abscess of groin Instructions: ED Abscess Incision And Drainage Prescriptions: New cephalexin 500 mg capsule 500 mg PO Q6 Qty: 40 0RF sulfamethoxazole-trimethoprim [Bactrim DS] 800-160 mg tablet 1 tab PO BID 10 Days Qty: 20 0RF No Action omeprazole 20 mg capsule,delayed release(DR/EC) 20 mg PO BID PRN ibuprofen 600 mg tablet 600 mg PO Q6H Qty: 20 0RF gabapentin 300 mg capsule 300 mg PO QHS Qty: 30 0RF celecoxib [Celebrex] 100 mg capsule 100 mg PO BID Qty: 60 0RF Rx Instructions: Do not take in conjunction with ibuprofen or other NSAID. Tylenol is okay. Primary Care Provider: Care Physician,No Primary Referrals: Al Ramírez DO [Med Staff - Client Operations Manager] - Care Physician,No Primary [Primary Care Provider] - Activity Restrictions/Additional Instructions: Please keep the area clean and dry. The packing may come out in 24 to 48 hours. You need to follow-up with the PCP. Take the antibiotics until finished. Return for any worsening symptoms. Print Language: Malagasy Disposition Disposition: Home, Self Care
[2024-01-17 20:47] VITALS: BP 105/74; PULSE 94; RESP 16; TEMP 36.8; O2SAT 100
[2024-01-17] MEDS: Smz/Tmp Ds Tablet 1 TABLET PO (20:50)
[2024-01-17] MEDS: Cephalexin 250 MG Capsule 500 MG PO (20:50)
== END 2024-01-17 20:51 | disposition home or self-care (01) ==
LOC: ED 20:47
PROVIDERS: Emergency Provider Emergency Medicine; Visit Provider Emergency Medicine
DX: L02.214 Cutaneous abscess of groin (principal); F17.210 Nicotine dependence, cigarettes, uncomplicated
CPT/HCPCS: 99283

== ENCOUNTER 2024-03-08 16:28 | Emergency (ER) | payer MEDICAID, SELFPAY ==
[2024-03-08 16:29] VITALS: BP 143/95; PULSE 126; RESP 18; TEMP 36.4; O2SAT 99; BMI 41.3
--- NOTE | 2024-03-08 16:53 | EDS_ITS ---
HPI History of Present Illness Chief Complaint: Back Informant: patient Onset/Context/Timing Onset: Weeks Narrative Narrative: Patient presents secondary to worsening low back pain and sciatica. She has a history of similar and had seen Dr. Duran previously. She states that she was not able to get the MRI that he had wanted so she has not been back to see him. She was unaware that he has retired. She complains of a 2-week history of increasing low back pain that goes down the right leg. She has been using ibuprofen. She states when she is given a Medrol Dosepak she does seem to be better, however pain returns once the steroids are stopped. She denies bowel or bladder incontinence. She does report difficulty walking secondary to pain. [facility] Medical History Neuroma Sciatica Home Medications ?Medication ?Instructions ?Recorded ?Last Taken ?Type ibuprofen 600 mg tablet 600 mg PO Q6H #20 TABLETS 05/22/23 Unknown Rx gabapentin 300 mg capsule 300 mg PO QHS #30 caps 10/19/23 Unknown Rx omeprazole 20 mg capsule,delayed 20 mg PO BID PRN 10/22/23 Unknown History release celecoxib 100 mg capsule (Celebrex) 100 mg PO BID #60 caps 12/25/23 Unknown Rx cephalexin 500 mg capsule 500 mg PO Q6 #40 CAPSULES 01/17/24 Unknown Rx sulfamethoxazole 800 1 tab PO BID 10 days #20 tabs 01/17/24 Unknown Rx mg-trimethoprim 160 mg tablet (Bactrim DS) cyclobenzaprine 10 mg tablet 10 mg PO TID PRN Muscle Spasm #20 03/08/24 Unknown Rx TABLETS hydrocodone-acetaminophen 5-325mg 1 tab PO Q6H PRN PRN Pain 3 days 03/08/24 Unknown Rx 5mg-325mg #10 TABLETS prednisone 10 mg tablet 10 mg PO DAILY #48 TABLETS 03/08/24 Unknown Rx Allergy/AdvReac Type Severity Reaction Status Date / Time No Known Allergies Allergy Verified 03/08/24 16:32 Surgical History Status post breast lumpectomy History of carpal tunnel release Social History household members: family Smoking Status: Current some day smoker tobacco type: cigarettes alcohol intake: never ROS ROS ED Constitutional Constitutional ED: Denies chills or fever(s) ENT ENT ED: Denies rhinorrhea or sore throat Cardiovascular Cardiovascular: Denies chest pain Respiratory/Chest Respiratory/Chest: Denies cough or dyspnea Gastrointestinal Gastrointestinal: Denies abdominal pain, nausea or vomiting Genitourinary Genitourinary ED: Reports other Details: Denies urinary continence. ; Denies dysuria Musculoskeletal Musculoskeletal: Reports back pain and extremity pain Integumentary Denies Abrasions or rash Neurologic Neurologic: Denies headache(s) Psychiatric Psychiatric: Denies anxiety or depression Allergic/Immunologic Allergic/Immunologic ED: Denies lip swelling or urticaria EXAM Physical Exam Const Vital Signs: 03/08/24 16:29 Temperature 97.6 F L Temperature Source Temporal Pulse Rate 126 H Respiratory Rate 18 Blood Pressure 143/95 H Blood Pressure Mean 111 Pulse Ox 99 Oxygen Delivery Method Room Air Positive well nourished and well developed General Appearance ED: well developed HEENT Reports moist mucous membranes Eyes EOMs intact bilaterally Resp normal respiratory effort and clear to auscultation bilaterally Cardio regular rate and regular rhythm GI normal to inspection, nondistended, normoactive bowel sounds and non-tender Back/Spine Back/Spine Narrative: No significant tenderness over the midline thoracic or lumbar spine. She does have reproducible tenderness in the right lower lumbar paraspinal muscles as well as over the sciatic notch. Extremity normal to inspection Neuro oriented x3 Neuro Narrative: Good strength and sensation noted on testing of the lower extremities. Patient able to turn from her back to her side without difficulty. Psych mental status grossly normal Skin no rashes or lesions noted MDM MDM MDM Narrative Medical decision making narrative: Patient is given a dose of Theresa, prednisone, and Flexeril here. Treatment and Re-Evaluation Narrative: Repeat evaluation patient does feel improved. She was able to sleep. I do not feel imaging is necessary as she has a normal neuroexam at this time. Patient will be given prescriptions for the same medications she was given here and referred to Dr. Lambert who is now a spine surgeon in the [facility]. Patient comfortable with the plan. Discharge Plan Triage Chief Complaint: Back ED Provider: Carole Joshi Dx/Rx/DC Orders Clinical Impression: Sciatica Instructions: ED Sciatica Prescriptions: New hydrocodone-acetaminophen 5-325 mg tablet 1 tab PO Q6H PRN PRN (Reason: Pain) 3 Days Qty: 10 0RF prednisone 10 mg tablet 10 mg PO DAILY Qty: 48 0RF Rx Instructions: 60mg po daily for 3 days, 40mg po daily for 3 days, 20mg po daily for 3 days, 10mg po daily for 3 days cyclobenzaprine 10 mg tablet 10 mg PO TID PRN (Reason: Muscle Spasm) Qty: 20 0RF No Action omeprazole 20 mg capsule,delayed release(DR/EC) 20 mg PO BID PRN ibuprofen 600 mg tablet 600 mg PO Q6H Qty: 20 0RF gabapentin 300 mg capsule 300 mg PO QHS Qty: 30 0RF cephalexin 500 mg capsule 500 mg PO Q6 Qty: 40 0RF sulfamethoxazole-trimethoprim [Bactrim DS] 800-160 mg tablet 1 tab PO BID 10 Days Qty: 20 0RF celecoxib [Celebrex] 100 mg capsule 100 mg PO BID Qty: 60 0RF Rx Instructions: Do not take in conjunction with ibuprofen or other NSAID. Tylenol is okay. Primary Care Provider: Care Physician,No Primary Referrals: Jordan Villafana MD [Med Staff - Active Staff] - As Needed Care Physician,No Primary [Primary Care Provider] - Print Language: Cypriot Disposition Disposition: Home, Self Care
[2024-03-08] MEDS: predniSONE 20 MG Tablet 60 MG PO (17:05)
[2024-03-08] MEDS: HYDROcodone Bitartrate/Apap 5/325 Tablet PO (17:05)
[2024-03-08] MEDS: cycloBENZAPRine HCl 10 MG Tablet PO (17:05)
== END 2024-03-08 18:31 | disposition home or self-care (01) ==
PROVIDERS: Emergency Provider Emergency Medicine; Visit Provider Emergency Medicine
DX: M54.41 Lumbago with sciatica, right side (principal); F17.210 Nicotine dependence, cigarettes, uncomplicated
CPT/HCPCS: 99282